=== PATIENT | male | born 1980 | race Caucasian/White ===

== ENCOUNTER 2017-03-03 16:29 | Emergency (ER) | payer SELFPAY ==
[~2017-03-03] VITALS: Ht 170.2 cm; Wt 80.0 kg
[2017-03-03 16:32] VITALS: BP 125/74
== END 2017-03-03 19:55 | disposition left against medical advice (07) ==
LOC: ER 16:32
DX: Z53.21 Procedure and treatment not carried out due to patient leaving prior to being seen by health care provider (principal)

== ENCOUNTER 2017-11-04 10:10 | Emergency (ER) | payer SELFPAY | END 2017-11-04 10:48 | disposition left against medical advice (07) | LOC: ER 10:10 | DX: Z53.21 Procedure and treatment not carried out due to patient leaving prior to being seen by health care provider (principal) ==